=== PATIENT | female | born 1935 | race Caucasian/White ===

== ENCOUNTER 2018-07-05 06:18 | Day surgery (SDC) | payer MEDICARE ==
[2018-07-03 14:42] LABS: Absolute Lymphocytes (CBC) 2.4 K/uL (0.7-4.9); Absolute Monocytes 0.7 K/uL (0.1-1.3); Basophils % 1.4 % (0-1.3); Hematocrit 43.8 % (36.0-45.0); Lymphocytes % 30.6 % (15.3-44.8); MPV 8.6 fL (7.6-11.3); Monocytes % 8.9 % (3.3-12.3); RBC Red Blood Cell Count 4.69 M/uL (3.86-4.86)
[2018-07-03 14:44] LABS: Potassium 3.6 mmol/L (3.5-5.1)
[2018-07-03 15:15] LABS: Protime INR 0.87
[2018-07-03 15:15] LABS: Urine Appearance CLOUDY; Urine Bilirubin NEGATIVE (NEG); Urine Blood NEGATIVE (NEG); Urine Color YELLOW; Urine Glucose NEGATIVE (NEG); Urine Microscopic Reflex ORDER UMIC; Urine Protein 2+ (NEG); Urine Urobilinogen 0.2 mg/dL (0.2-1.0); Urine pH 5.5 (5.0-7.0)
[2018-07-03 15:24] LABS: Urine Bacteria <20 /HPF (<20); Urine Culture Reflex Order REFLEXED; Urine RBC <5 /HPF (NONE SEEN)
[2018-07-05] MEDS ORDERED: Ringers Lactate 1,000 ML IV ONE ×2 (07:04→09:14)
[2018-07-05] MEDS ORDERED: PROPOFOL 200 MG/20 ML VIAL IV ONE ×2 (07:10→07:25)
[2018-07-05] MEDS ORDERED: DEXAMETHASONE 10 MG/ML VIAL ONE (07:10)
[2018-07-05] MEDS ORDERED: FENTANYL CITR 100 MCG/2 ML ONE ×3 (07:10→10:57)
[2018-07-05] MEDS ORDERED: ROCURONIUM 50 MG/5 ML VIAL IV ONE (07:10)
[2018-07-05] MEDS ORDERED: LIDOCAINE 2% MPF 5 ML VIAL ONE (07:10)
[2018-07-05] MEDS ORDERED: MIDAZOLAM HCL 2 MG/2 ML INJ ONE (07:10)
[2018-07-05] MEDS ORDERED: NA CHLORIDE 0.9% 100 ML IV ONE (07:22)
[2018-07-05] MEDS ORDERED: VASOPRESSIN 20 UNIT/ML VIAL ONE (07:23)
[2018-07-05] MEDS ORDERED: CEFAZOLIN/SWI 1gm 1 GM/10 ML SYR ONE (07:23)
[2018-07-05] MEDS: Ringers Lactate 1,000 ML IV ONE ×2 (11:01→11:02)
[2018-07-05] MEDS ORDERED: ONDANSETRON 4 MG (ODT) TAB PO PRN (11:18)
[2018-07-05] MEDS ORDERED: ACETAMINOPHEN 500 MG TAB PO PRN (11:18)
[2018-07-05] MEDS ORDERED: MORPHINE 4 MG/ML SYR IV PRN (11:18)
[2018-07-05] MEDS: METFORMIN HCL 500 MG TAB PO SCH (17:00)
[2018-07-05] MEDS: Ringers Lactate 1,000 ML IV SCH (19:15)
[2018-07-06] MEDS: Ringers Lactate 1,000 ML IV SCH (03:25)
[2018-07-06 04:52] LABS: Absolute Lymphocytes (CBC) 1.7 K/uL (0.7-4.9); Absolute Monocytes 0.9 K/uL (0.1-1.3); Absolute Neutrophil 11.4 K/uL (1.8-8.0); Basophils % 0.2 % (0-1.3); Hematocrit 37.3 % (36.0-45.0); MPV 8.4 fL (7.6-11.3); Monocytes % 6.4 % (3.3-12.3)
[2018-07-06] MEDS ORDERED: LEVOTHYROXINE SOD 0.05 MG TABLET PO SCH (06:00)
[2018-07-06] MEDS: METFORMIN HCL 500 MG TAB PO SCH (08:16)
[2018-07-06] MEDS ORDERED: hydroCHLOROthiazide 12.5 MG CAP PO SCH (09:00)
[2018-07-06] MEDS ORDERED: PANTOPRAZOLE 40MG TABLET PO SCH (09:00)
[2018-07-06] MEDS ORDERED: AMLODIPINE 10 MG TAB PO SCH (09:00)
== END 2018-07-06 14:00 | disposition home or self-care (01) ==
LOC: OR 06:18 → 2ND-WC 11:52 → OR 07-06 14:00
PROVIDERS: ATTEND Obstetrics & Gynecology
PROC: 0TSD0ZZ Reposition Urethra, Open Approach (ICD-10-PCS; 2018-07-05)
PROC: 0HQ9XZZ Repair Perineum Skin, External Approach (ICD-10-PCS; 2018-07-05)
PROC: 0ULG7ZZ Occlusion of Vagina, Via Natural or Artificial Opening (ICD-10-PCS; principal; 2018-07-05 07:30)
DX: N99.3 Prolapse of vaginal vault after hysterectomy (principal); N81.12 Cystocele, lateral; N39.3 Stress incontinence (female) (male); N95.2 Postmenopausal atrophic vaginitis; E11.65 Type 2 diabetes mellitus with hyperglycemia; I10 Essential (primary) hypertension; E03.9 Hypothyroidism, unspecified; K21.9 Gastro-esophageal reflux disease without esophagitis; E78.5 Hyperlipidemia, unspecified; Z79.82 Long term (current) use of aspirin; Z88.2 Allergy status to sulfonamides; Z88.3 Allergy status to other anti-infective agents; Z88.8 Allergy status to other drugs, medicaments and biological substances; Z80.3 Family history of malignant neoplasm of breast; Z80.0 Family history of malignant neoplasm of digestive organs; Z82.49 Family history of ischemic heart disease and other diseases of the circulatory system
CPT/HCPCS: 57120; 57288; 12001; 87088; 85025 ×2; 87086; 80048; 36415 ×2; 86900; 86850; 85610; 86901; 82962 ×5; 85730; J2704 ×2; J3010 ×3; J1100; J0690; 81003; 81015; J2250

== ENCOUNTER 2021-10-31 10:46 | Emergency (ER) | payer OTHER ==
[2021-10-31] MEDS ORDERED: HYDROCODONE/APAP 5/325 MG TAB ONE (11:47)
--- NOTE | 2021-10-31 13:00 | RAD REPORT ---
EXAM DESCRIPTION: RAD - Foot Right 3 View - 10/31/2021 12:34 pm CLINICAL HISTORY: Right foot pain status post injury FINDINGS: Markedly displaced fracture base of fifth proximal phalanx with marked angulation present at the fracture site. No dislocation
--- NOTE | 2021-10-31 13:26 | EDPHYS ---
Physician Documentation [facility] Name: Madeline Dillard Age: 85 yrs Sex: Female : 1935 Arrival Date: 10/31/2021 Time: 10:52 Bed 12 Private MD: Lalito Yung T ED Physician Tana Connell HPI: 10/31 11:16 This 85 yrs old Female presents to ER via Wheelchair with complaints of Fall Injury, jmm Toe Injury. 11:16 The patient presents with an injury, pain. Onset: The symptoms/episode began/occurred jmm acutely, just prior to arrival. Modifying factors: The symptoms are alleviated by nothing, the symptoms are aggravated by nothing. Associated signs and symptoms: Pertinent positives:. This is an 85 year old female with a history of dm that presents to the ED with complaints of right 5th toe pain after stubbing her foot. Denies other injury. Denies head injury. . Historical: - Allergies: 11:01 ALL MAXWELL DRUGS; iw 11: bupivacaine; iw 11: Lidocaine; iw 11: Marcaine 0.5%; iw 11:01 Bactrim; iw 11:01 Celebrex; iw 11:01 Fosamax; iw 11:01 Sulfa (Sulfonamide Antibiotics); iw - Home Meds: 11: metformin 500 mg oral tab 2 times per day [Active]; mobic [Active]; Trelegy Ellipta iw inhalation once daily [Active]; citalopram 20 mg tab 1 tab once daily [Active]; amlodipine 10 mg tab 1 tab once daily [Active]; aspirin 81 mg Oral cap 1 cap once daily [Active]; Crestor 20 mg oral tab 1 tab once daily [Active]; hydrochlorothiazide 12.5 mg Oral tab 1 tab 2 times per day [Active]; levothyroxine 75 mcg cap 1 cap once daily [Active]; - PMHx: 11:01 Diabetes - NIDDM; ulcerative colitis; iw - PSHx: 11:01 hysterectomy; Cholecystectomy; bladder prolapse; cataract; back surgery for pinched iw nerves; - Immunization history:: Adult Immunizations unknown. - Social history:: Smoking status: unknown. ROS: 16:07 Constitutional: Negative for fever, chills, and weight loss, Cardiovascular: Negative jmm for chest pain, palpitations, and edema, Respiratory: Negative for shortness of breath, cough, wheezing, and pleuritic chest pain. 16:07 MS/extremity: Positive for pain. 16:07 All other systems are negative. Exam: 16:07 Constitutional: This is a well developed, well nourished patient who is awake, alert, jmm and in no acute distress. Head/Face: atraumatic. Eyes: EOMI, no conjunctival erythema appreciated ENT: Moist Mucus Membranes Neck: Trachea midline, Supple Chest/axilla: Normal chest wall appearance and motion. Cardiovascular: Regular rate and rhythm. No edema appreciated Respiratory: Normal respirations, no respiratory distress appreciated Abdomen/GI: Non distended Back: Normal ROM Skin: General appearance color normal 16:07 Musculoskeletal/extremity: pain noted to the right 5th toe. deformity, < 2 sec dist cap refill. 16:07 Skin: Appearance: Color: normal in color. 16:07 Neuro: Orientation: is normal, Mentation: is normal, Memory: is normal. 16:07 Psych: Behavior/mood is pleasant, cooperative. Vital Signs: 11:05 BP 122 / 54; Pulse 64; Resp 16; Pulse Ox 95% on R/A; Weight 68.04 kg; Height 4 ft. 11 iw in. (149.86 cm); Pain 3/10; 11:05 Body Mass Index 30.30 (68.04 kg, 149.86 cm) iw MDM: 11:16 Patient medically screened. [facility] 13:24 Data reviewed: vital signs, nurses notes. Counseling: I had a detailed discussion with [facility] the patient and/or guardian regarding: the historical points, exam findings, and any diagnostic results supporting the discharge/admit diagnosis, radiology results, the need for outpatient follow up, to return to the emergency department if symptoms worsen or persist or if there are any questions or concerns that arise at home. 10/31 11:18 Order name: Foot Right 3 View XRAY; Complete Time: 13:04 [facility] 10/31 11:18 Order name: Ice pack; Complete Time: 11:43 [facility] 10/31 13:05 Order name: Misc. Order: carla tape, orthoshoe; Complete Time: 13:23 [facility] Administered Medications: 11:43 Drug: HYDROcodone-acetaminophen 5 mg-325 mg 1 tabs Route: PO; iw 12:00 Follow up: Response: No adverse reaction iw Disposition: 16:15 STAFF ATTESTATION STATEMENT: I was immediately available onsite in the emergency sd2 department for consultation in the care of this patient. I did not see or examine this patient. Tana Connell MD. Disposition Summary: 10/31/21 13:25 Discharge Ordered Location: Home [facility] Condition: Stable [facility] Diagnosis - Right 5th toe Fracture [facility] Followup: [facility] - With: Jose Alford DPM - When: 2 - 3 days - Reason: Recheck today's complaints, Continuance of care, Re-evaluation by your physician Discharge Instructions: - Discharge Summary Sheet [facility] - Toe Fracture [facility] Forms: - Medication Reconciliation Form [facility] - Thank You Letter [facility] - Antibiotic Education [facility] - Prescription Opioid Use [facility] Prescriptions: - Tylenol-Codeine #3 300 mg-30 mg Oral - take 1 tablet by ORAL route every 4-6 hours As needed; 20 tablet; Refills: 0, [facility] Product Selection Permitted Signatures: Dispatcher [employer] EDMS William Ward PA PA jmm Williams, Irene, RN RN iw Tana Connell MD MD sd2 Corrections: (The following items were deleted from the chart) 16:08 11:16 This is an 85 year old female with a history of dm. gina fuentes
--- NOTE | 2021-10-31 13:26 | ER ---
Nurse's Notes [facility] Name: Madeline Dillard Age: 85 yrs Sex: Female : 1935 Arrival Date: 10/31/2021 Time: 10:52 Bed 12 Private MD: Lalito Yung T Diagnosis: Right 5th toe Fracture Presentation: 10/31 10:59 Chief complaint: Patient states: tripped and fell, my toe got caught on the door jamb , iw deformed pinky toe on right foot, can't put weight on foot. 10:59 Acuity: JUSTICE 4 iw 13:40 Coronavirus screen: At this time, the client does not indicate any symptoms associated iw with coronavirus-19. Ebola Screen: Patient negative for fever greater than or equal to 101.5 degrees Fahrenheit, and additional compatible Ebola Virus Disease symptoms Patient denies exposure to infectious person. Patient denies travel to an Ebola-affected area in the 21 days before illness onset. No symptoms or risks identified at this time. Initial Sepsis Screen: Does the patient meet any 2 criteria? No. Patient's initial sepsis screen is negative. Does the patient have a suspected source of infection? No. Patient's initial sepsis screen is negative. Risk Assessment: Do you want to hurt yourself or someone else? Patient reports no desire to harm self or others. Onset of symptoms was October 31, 2021. 13:40 Method Of Arrival: Wheelchair iw Triage Assessment: 13:40 General: Appears in no apparent distress. Behavior is calm, cooperative. iw Historical: - Allergies: 11:01 ALL MAXWELL DRUGS; iw 11: bupivacaine; iw 11: Lidocaine; iw 11: Marcaine 0.5%; iw 11:01 Bactrim; iw 11:01 Celebrex; iw 11:01 Fosamax; iw 11:01 Sulfa (Sulfonamide Antibiotics); iw - Home Meds: 11: metformin 500 mg oral tab 2 times per day [Active]; mobic [Active]; Trelegy Ellipta iw inhalation once daily [Active]; citalopram 20 mg tab 1 tab once daily [Active]; amlodipine 10 mg tab 1 tab once daily [Active]; aspirin 81 mg Oral cap 1 cap once daily [Active]; Crestor 20 mg oral tab 1 tab once daily [Active]; hydrochlorothiazide 12.5 mg Oral tab 1 tab 2 times per day [Active]; levothyroxine 75 mcg cap 1 cap once daily [Active]; - PMHx: 11:01 Diabetes - NIDDM; ulcerative colitis; iw - PSHx: 11:01 hysterectomy; Cholecystectomy; bladder prolapse; cataract; back surgery for pinched iw nerves; - Immunization history:: Adult Immunizations unknown. - Social history:: Smoking status: unknown. Screenin:35 Abuse screen: Denies threats or abuse. Denies injuries from another. Nutritional iw screening: No deficits noted. Tuberculosis screening: No symptoms or risk factors identified. Fall Risk None identified. Assessment: 11:20 General: Appears in no apparent distress. Behavior is calm, cooperative. Pain: iw Complains of pain in right fifth toe and Right fifth toenail. Neuro: Level of Consciousness is awake, alert, obeys commands, Oriented to person, place, time, situation, Moves all extremities. Cardiovascular: Patient's skin is warm and dry. Respiratory: Respiratory effort is even, unlabored, Respiratory pattern is regular, symmetrical. Derm: Skin is intact, is healthy with good turgor. Musculoskeletal: Bony deformity noted of right fifth toe. 12:35 Reassessment: Patient appears in no apparent distress at this time. Patient and/or iw family updated on plan of care and expected duration. Pain level reassessed. Patient is alert, oriented x 3, equal unlabored respirations, skin warm/dry/pink. Vital Signs: 11:05 BP 122 / 54; Pulse 64; Resp 16; Pulse Ox 95% on R/A; Weight 68.04 kg; Height 4 ft. 11 iw in. (149.86 cm); Pain 3/10; 11:05 Body Mass Index 30.30 (68.04 kg, 149.86 cm) iw ED Course: 10:52 Patient arrived in ED. as 10:53 Lalito Yung MD is Private Physician. as 10:57 William Ward PA is PHCP. jmm 10:57 Tana Connell MD is Attending Physician. jmm 11:01 Triage completed. iw 11:05 Arm band placed on. iw 11:26 Radha Schuster, RN is Primary Nurse. iw 12:35 Foot Right 3 View XRAY In Process Unspecified. EDMS 12:36 No provider procedures requiring assistance completed. iw 13:24 Jose Alford DPM is Referral Physician. jmm 13:40 Patient did not have IV access during this emergency room visit. iw 13:41 Patient has correct armband on for positive identification. iw Administered Medications: 11:43 Drug: HYDROcodone-acetaminophen 5 mg-325 mg 1 tabs Route: PO; iw 12:00 Follow up: Response: No adverse reaction iw Medication: 11:20 VIS not applicable for this client. iw Outcome: 13:25 Discharge ordered by MD. gina 13:40 Discharged to home via wheelchair, with family. iw 13:40 Condition: good 13:40 Discharge instructions given to patient, family, Instructed on discharge instructions, follow up and referral plans. medication usage, Demonstrated understanding of instructions, follow-up care, medications, Prescriptions given X 1. 13:41 Patient left the ED. iw Signatures: Dispatcher [employer] EDMS William Ward PA PA jmm Martinez, Amelia as Williams, Irene, RN RN iw
[2021-11-01 22:31] VITALS: BP 122/54; O2SAT 95
== END 2021-10-31 13:41 | disposition home or self-care (01) ==
LOC: ER 10:46
DX: S92.501A Displaced unspecified fracture of right lesser toe(s), initial encounter for closed fracture (principal)
CPT/HCPCS: 99283

== ENCOUNTER 2022-01-23 18:32 | Emergency (ER) | payer OTHER ==
[2022-01-23] MEDS ORDERED: NA CHLORIDE 0.9% 1,000 ML ONE (20:28)
[2022-01-23] MEDS ORDERED: FAMOTIDINE 20 MG/2 ML VIAL IV ONE (20:28)
[2022-01-23 21:14] LABS: Absolute Lymphocytes (CBC) 1.4 K/uL (0.7-4.9); Hematocrit 44.1 % (36.0-45.0); Lymphocytes % 10.7 % (15.3-44.8); MCV 90.4 fL (80-100); MPV 8.8 fL (7.6-11.3); RBC Red Blood Cell Count 4.88 M/uL (3.86-4.86)
[2022-01-23 21:29] LABS: Albumin 2.4 g/dL (3.4-5.0); Bilirubin Total 0.8 mg/dL (0.2-1.0); Potassium 3.1 mmol/L (3.5-5.1); Protein, Total 6.9 g/dL (6.4-8.2)
--- NOTE | 2022-01-23 22:01 | RAD REPORT ---
EXAM DESCRIPTION: CTAbdomen Pelvis W Contrast - 01/23/2022 9:49 pm CLINICAL HISTORY: LLQ abdominal pain COMPARISON: <Comparisons> TECHNIQUE: CT of the abdomen and pelvis was performed. All CT scans are performed using dose optimization technique as appropriate and may include automated exposure control or mA/KV adjustment according to patient size. FINDINGS: Lower chest: Aortic valve calcifications. Coronary artery calcifications. Liver: Minimal intra biliary duct dilatation . No suspicious liver lesions. Biliary: Cholecystectomy. Extrahepatic biliary ductal dilatation likely related to the postcholecyste ctomy state. Stomach: No significant focal abnormality. Duodenum: No significant focal abnormality. Pancreas: No significant abnormality. Spleen: No significant abnormality. Adrenal: No suspicious lesions. Kidney/ureter: Mild left-sided hydronephrosis secondary to a 5 mm stone in the left proximal ureter. Multiple bilateral renal calculi, the largest in the left lower pole measuring 14 mm Retroperitoneum: No retroperitoneal adenopathy. Vascular: No aneurysm. Atherosclerosis . Bowel: Diverticulosis without diverticulitis.. Nonvisualized appendix. Peritoneum: No ascites or free air. Bladder: Grossly unremarkable. Reproductive: No adnexal masses. . Bones: No acute fracture. Other: n/a IMPRESSION: Mild left-sided hydronephrosis secondary to a 5 mm stone in the left proximal ureter.
[2022-01-23 22:14] LABS: Urine Blood 2+ (Negative); Urine Glucose Negative (Negative); Urine Protein 2+ (Negative)
[2022-01-23] MEDS ORDERED: TAMSULOSIN 0.4 MG SR CAP ONE (22:33)
--- NOTE | 2022-01-23 23:02 | EDPHYS ---
Physician Documentation [facility] Name: Madeline Dillard Age: 86 yrs Sex: Female : 1935 Arrival Date: 01/23/2022 Time: 18:33 Bed 16 Private MD: ED Physician Edmund Light HPI: 01/23 20:15 This 86 yrs old Female presents to ER via Ambulatory with complaints of kdr Nausea/Vomiting, Flank Pain, Fever, Weakness. 20:16 With a patient has had nausea and vomiting for 5 days. Yesterday she began to get left kdr lower quadrant pain. She denies any bloody stool or blood in her. She does not appear acutely ill at this point is generally weak. He has no other focal complaint.. Severity of symptoms: At their worst the symptoms were mild moderate just prior to arrival. The patient has not experienced similar symptoms in the past. The patient has not recently seen a physician. Historical: - Allergies: 19:59 ALL MAXWELL DRUGS; eh3 19:59 Bactrim; eh3 19:59 bupivacaine; eh3 19:59 Celebrex; eh3 19:59 Fosamax; eh3 19:59 Lidocaine; eh3 19:59 Marcaine 0.5%; eh3 19:59 Sulfa (Sulfonamide Antibiotics); eh3 - Home Meds: 19:59 amlodipine 10 mg tab 1 tab once daily [Active]; aspirin 81 mg Oral cap 1 cap once daily eh3 [Active]; citalopram 20 mg tab 1 tab once daily [Active]; Crestor 20 mg Oral tab 1 tab once daily [Active]; hydrochlorothiazide 12.5 mg Oral tab 1 tab 2 times per day [Active]; levothyroxine 75 mcg cap 1 cap once daily [Active]; metformin 500 mg Oral tab 2 times per day [Active]; Mobic [Active]; Trelegy Ellipta inhalation once daily [Active]; - PMHx: 19:59 Diabetes - NIDDM; ulcerative colitis; eh3 - PSHx: 19:59 back surgery for pinched nerves; bladder prolapse; cataract; Cholecystectomy; eh3 hysterectomy; - Immunization history:: Adult Immunizations up to date. - Social history:: Smoking status: Patient denies any tobacco usage or history of. Patient/guardian denies using alcohol. ROS: 20:16 Constitutional: Negative for fever, chills, and weight loss, Eyes: Negative for injury, kdr pain, redness, and discharge, ENT: Negative for injury, pain, and discharge, Neck: Negative for injury, pain, and swelling, Cardiovascular: Negative for chest pain, palpitations, and edema, Respiratory: Negative for shortness of breath, cough, wheezing, and pleuritic chest pain, Back: Negative for injury and pain, : Negative for injury, bleeding, discharge, and swelling, MS/Extremity: Negative for injury and deformity, Skin: Negative for injury, rash, and discoloration, Neuro: Negative for headache, weakness, numbness, tingling, and seizure activity. Psych: Negative for depression, anxiety, suicide ideation, homicidal ideation, and hallucinations, Allergy/Immunology: Negative for hives, rash, and allergies, Endocrine: Negative for neck swelling, polydipsia, polyuria, polyphagia, and marked weight changes, Hematologic/Lymphatic: Negative for swollen nodes, abnormal bleeding, and unusual bruising. 20:16 Abdomen/GI: Positive for abdominal pain, nausea and vomiting, nausea, vomiting, and diarrhea, Negative for abdominal distension, dysphagia, hematemesis, black/tarry stool, rectal pain. Exam: 20:16 Constitutional: This is a well developed, well nourished patient who is awake, alert, kdr and in no acute distress. Head/Face: Normocephalic, atraumatic. Eyes: Pupils equal round and reactive to light, extra-ocular motions intact. Lids and lashes normal. Conjunctiva and sclera are non-icteric and not injected. Cornea within normal limits. Periorbital areas with no swelling, redness, or edema. Neck: Trachea midline, no thyromegaly or masses palpated, and no cervical lymphadenopathy. Supple, full range of motion without nuchal rigidity, or vertebral point tenderness. No Meningismus. Chest/axilla: Normal chest wall appearance and motion. Nontender with no deformity. No lesions are appreciated. Cardiovascular: Regular rate and rhythm with a normal S1 and S2. No gallops, murmurs, or rubs. Normal PMI, no JVD. No pulse deficits. Respiratory: Lungs have equal breath sounds bilaterally, clear to auscultation and percussion. No rales, rhonchi or wheezes noted. No increased work of breathing, no retractions or nasal flaring. Back: No spinal tenderness. No costovertebral tenderness. Full range of motion. Skin: Warm, dry with normal turgor. Normal color with no rashes, no lesions, and no evidence of cellulitis. MS/ Extremity: Pulses equal, no cyanosis. Neurovascular intact. Full, normal range of motion. Neuro: Awake and alert, GCS 15, oriented to person, place, time, and situation. Cranial nerves II-XII grossly intact. Motor strength 5/5 in all extremities. Sensory grossly intact. Cerebellar exam normal. Normal gait. Psych: Awake, alert, with orientation to person, place and time. Behavior, mood, and affect are within normal limits. 20:16 Abdomen/GI: Inspection: obese Bowel sounds: diminished, in all quadrants, Palpation: soft, mild abdominal tenderness, in the anterior aspect of left lateral abdomen and left lower quadrant. Vital Signs: 19:30 BP 132 / 95; Pulse 123; Resp 20; Pulse Ox 93% on R/A; Weight 68.04 kg; Height 4 ft. 11 eh3 in. (149.86 cm); Pain 6/10; 20:30 BP 120 / 71; Pulse 117; Resp 15; Pulse Ox 95% on 3 lpm NC; eh3 21:30 BP 134 / 102; Pulse 128; Resp 20; Pulse Ox 96% on 3 lpm NC; eh3 22:30 BP 111 / 94; Pulse 119; Resp 20; Pulse Ox 99% on 3 lpm NC; eh3 19:30 Body Mass Index 30.30 (68.04 kg, 149.86 cm) 3 MDM: 20:16 Data reviewed: vital signs, nurses notes, lab test result(s), radiologic studies. kdr Counseling: I had a detailed discussion with the patient and/or guardian regarding: the historical points, exam findings, and any diagnostic results supporting the discharge/admit diagnosis, lab results, radiology results, the need for outpatient follow up. 23:02 Patient medically screened. kdr 01/23 19:44 Order name: CBC with Diff; Complete Time: 21:39 kdr 01/23 19:44 Order name: CMP; Complete Time: 21:39 kdr 01/23 19:44 Order name: Lipase; Complete Time: 21:39 kdr 01/23 20:13 Order name: CT Abd/Pelvis - IV Contrast Only; Complete Time: 22:02 [facility] 01/23 22:14 Order name: Urine Dipstick-Ancillary; Complete Time: 22:35 EDMT 01/23 19:44 Order name: IV Saline Lock; Complete Time: 21:00 [facility] 01/23 19:44 Order name: Labs collected and sent; Complete Time: 21:00 [facility] 01/23 21:40 Order name: Urine Dipstick-Ancillary (obtain specimen); Complete Time: 22:37 kdr Administered Medications: 20:45 Drug: NS 0.9% 1000 ml Route: IV; Rate: 1 bolus; Site: right antecubital; eh3 21:45 Follow up: IV Status: Completed infusion; IV Intake: 1000ml 3 20:45 Drug: Pepcid (famotidine) 20 mg Route: IVP; Site: right antecubital; eh3 21:41 Follow up: Response: No adverse reaction 3 22:37 Drug: Flomax (tamsulosin) 0.4 mg Route: PO; eh3 23:13 Follow up: Response: No adverse reaction eh3 Disposition Summary: 01/23/22 23:02 Discharge Ordered Location: Home kdr Problem: new kdr Symptoms: have improved kdr Condition: Stable kdr Diagnosis - Lower abdominal pain, unspecified kdr - Kidney Stone/ Calculus in urethra kdr Followup: kdr - With: Private Physician - When: 2 - 3 days - Reason: If symptoms return, Further diagnostic work-up, Recheck today's complaints, Continuance of care, Re-evaluation by your physician Discharge Instructions: - Kidney Stones, [id number] kdr - Abdominal Pain, Adult, [id number] kdr - Discharge Summary Sheet cp Forms: - Medication Reconciliation Form kdr - Thank You Letter kdr - Antibiotic Education kdr Prescriptions: - Ibuprofen 600 mg Oral Tablet - take 1 tablet by ORAL route every 6 hours As needed take with food; 15 tablet; kdr Refills: 0, Product Selection Permitted - Zofran 4 mg Oral Tablet - take 1 tablet by ORAL route every 4-6 hours As needed; 12 tablet; Refills: 0, kdr Product Selection Permitted - Amoxicillin 500 mg Oral Capsule - take 1 capsule by ORAL route every 8 hours for 10 days; 9 tablet; Refills: 0, kdr Product Selection Permitted - Flomax 0.4 mg Oral capsule - take 1 capsule by ORAL route once daily 1/2 hour following the same meal each day; 10 capsule; Refills: 0, Product Selection Permitted Signatures: Dispatcher [employer] Edmund Ruiz MD MD kdr Hall, Erin RN RN eh3
--- NOTE | 2022-01-23 23:02 | ER ---
Nurse's Notes [facility] Name: Madeline Dillard Age: 86 yrs Sex: Female : 1935 Arrival Date: 01/23/2022 Time: 18:33 Bed 16 Private MD: Diagnosis: Lower abdominal pain, unspecified;Kidney Stone/ Calculus in urethra Presentation: 01/23 19:30 Chief complaint: Patient states: LLQ pain radiating to midback area, n/v for 5 days. eh3 Also reports hallucinations yesterday and today. Coronavirus screen: Vaccine status: Patient reports being unvaccinated. Ebola Screen: No symptoms or risks identified at this time. Initial Sepsis Screen: Does the patient meet any 2 criteria? Altered Mental Status. HR > 90 bpm. Does the patient have a suspected source of infection? No. Patient's initial sepsis screen is negative. Risk Assessment: Do you want to hurt yourself or someone else? Patient reports no desire to harm self or others. Onset of symptoms was January 18, 2022. 19:30 Method Of Arrival: Ambulatory 3 19:30 Acuity: JUSTICE 3 eh3 Triage Assessment: 19:30 General: Appears in no apparent distress. uncomfortable, Behavior is calm, cooperative, eh3 appropriate for age. Pain: Complains of pain in posterior aspect of left lateral abdomen, anterior aspect of left lateral abdomen and left lower quadrant Pain radiates to lumbar area, left low back and right low back. EENT: No signs and/or symptoms were reported regarding the EENT system. Neuro: Level of Consciousness is awake, alert, obeys commands, Oriented to person, place, time, situation. Cardiovascular: Capillary refill < 3 seconds Patient's skin is warm and dry. Respiratory: Airway is patent Respiratory effort is even, unlabored, Respiratory pattern is regular, symmetrical. GI: Abdomen is round non-distended, Reports lower abdominal pain, intolerance of food, nausea, vomiting. : No signs and/or symptoms were reported regarding the genitourinary system. Derm: No signs and/or symptoms reported regarding the dermatologic system. Musculoskeletal: Circulation, motion, and sensation intact. Range of motion: intact in all extremities. Historical: - Allergies: 19:59 ALL MAXWELL DRUGS; eh3 19:59 Bactrim; eh3 19:59 bupivacaine; eh3 19:59 Celebrex; 3 19:59 Fosamax; eh3 19:59 Lidocaine; 3 19:59 Marcaine 0.5%; eh3 19:59 Sulfa (Sulfonamide Antibiotics); eh3 - Home Meds: 19:59 amlodipine 10 mg tab 1 tab once daily [Active]; aspirin 81 mg Oral cap 1 cap once daily eh3 [Active]; citalopram 20 mg tab 1 tab once daily [Active]; Crestor 20 mg Oral tab 1 tab once daily [Active]; hydrochlorothiazide 12.5 mg Oral tab 1 tab 2 times per day [Active]; levothyroxine 75 mcg cap 1 cap once daily [Active]; metformin 500 mg Oral tab 2 times per day [Active]; Mobic [Active]; Trelegy Ellipta inhalation once daily [Active]; - PMHx: 19:59 Diabetes - NIDDM; ulcerative colitis; eh3 - PSHx: 19:59 back surgery for pinched nerves; bladder prolapse; cataract; Cholecystectomy; eh3 hysterectomy; - Immunization history:: Adult Immunizations up to date. - Social history:: Smoking status: Patient denies any tobacco usage or history of. Patient/guardian denies using alcohol. Screenin:30 Abuse screen: Denies threats or abuse. Denies injuries from another. Nutritional 3 screening: No deficits noted. Tuberculosis screening: No symptoms or risk factors identified. Fall Risk None identified. Assessment: 19:30 Reassessment: No changes from previously documented assessment. See triage assessment. eh3 GI: Abdomen is round non-distended. 20:30 Reassessment: Patient appears in no apparent distress at this time. Patient and/or eh3 family updated on plan of care and expected duration. Pain level reassessed. Patient is alert, oriented x 3, equal unlabored respirations, skin warm/dry/pink. 21:30 Reassessment: Patient appears in no apparent distress at this time. Patient and/or eh3 family updated on plan of care and expected duration. Pain level reassessed. Patient is alert, oriented x 3, equal unlabored respirations, skin warm/dry/pink. 22:30 Reassessment: Patient appears in no apparent distress at this time. Patient and/or eh3 family updated on plan of care and expected duration. Pain level reassessed. Patient is alert, oriented x 3, equal unlabored respirations, skin warm/dry/pink. Vital Signs: 19:30 BP 132 / 95; Pulse 123; Resp 20; Pulse Ox 93% on R/A; Weight 68.04 kg; Height 4 ft. 11 eh3 in. (149.86 cm); Pain 6/10; 20:30 BP 120 / 71; Pulse 117; Resp 15; Pulse Ox 95% on 3 lpm NC; eh3 21:30 BP 134 / 102; Pulse 128; Resp 20; Pulse Ox 96% on 3 lpm NC; eh3 22:30 BP 111 / 94; Pulse 119; Resp 20; Pulse Ox 99% on 3 lpm NC; eh3 19:30 Body Mass Index 30.30 (68.04 kg, 149.86 cm) eh3 ED Course: 18:33 Patient arrived in ED. as 19:01 Edmund Light MD is Attending Physician. kdr 19:30 Patient has correct armband on for positive identification. Bed in low position. Call [facility] light in reach. Side rails up X2. Adult w/ patient. Client placed on continuous cardiac and pulse oximetry monitoring. NIBP monitoring applied. Door closed. Noise minimized. Warm blanket given. Pillow given. 19:30 Arm band placed on right wrist. eh3 19:41 Katelyn Moreno, RN is Primary Nurse. eh3 19:59 Triage completed. eh3 20:45 Inserted saline lock: 22 gauge in right antecubital area, using aseptic technique. eh3 Blood collected. 21:50 CT Abd/Pelvis - IV Contrast Only In Process Unspecified. EDMS 23:12 No provider procedures requiring assistance completed. IV discontinued, intact, eh3 bleeding controlled, No redness/swelling at site. Pressure dressing applied. Administered Medications: 20:45 Drug: NS 0.9% 1000 ml Route: IV; Rate: 1 bolus; Site: right antecubital; eh3 21:45 Follow up: IV Status: Completed infusion; IV Intake: 1000ml eh3 20:45 Drug: Pepcid (famotidine) 20 mg Route: IVP; Site: right antecubital; eh3 21:41 Follow up: Response: No adverse reaction eh3 22:37 Drug: Flomax (tamsulosin) 0.4 mg Route: PO; eh3 23:13 Follow up: Response: No adverse reaction eh3 Medication: 23:12 VIS not applicable for this client. eh3 Intake: 21:45 IV: 1000ml; Total: 1000ml. eh3 Outcome: 23:02 Discharge ordered by . kdr 23:27 Discharged to home via wheelchair, with family. eh3 23:27 Condition: stable 23:27 Discharge instructions given to patient, family, Instructed on discharge instructions, follow up and referral plans. medication usage, Demonstrated understanding of instructions, follow-up care, medications, Prescriptions given X 4. 23:28 Patient left the ED. eh3 Signatures: Dispatcher [employer] EDMS Edmund Light MD MD kdr Martinez, Amelia as Hall, Erin, RN RN eh3 Corrections: (The following items were deleted from the chart) 20:02 19:30 Chief complaint: Patient states: LLQ pain radiating to midback area, n/v for 5 eh3 days eh3
[2022-01-24 02:36] VITALS: BP 111/94; O2SAT 99
== END 2022-01-23 23:28 | disposition home or self-care (01) ==
LOC: ER 18:32
DX: N20.0 Calculus of kidney (principal); N21.1 Calculus in urethra; E11.9 Type 2 diabetes mellitus without complications
CPT/HCPCS: 96361; 85025; 36415; 81003; 83690; 80053; 74177; 96374; 99284; Q9967; J7030

== ENCOUNTER 2022-03-09 10:23 | Day surgery (SDC) | payer OTHER ==
[2022-03-03 16:21] LABS: Absolute Lymphocytes (CBC) 2.5 K/uL (0.7-4.9); Hematocrit 37.5 % (36.0-45.0); Lymphocytes % 27.6 % (15.3-44.8); MCV 89.6 fL (80-100); RBC Red Blood Cell Count 4.19 M/uL (3.86-4.86)
[2022-03-03 16:26] LABS: Protime INR 0.98
--- NOTE | 2022-03-03 16:32 | RAD REPORT ---
EXAM DESCRIPTION: Branden Steinberg (2 Views)03/03/2022 4:09 pm CLINICAL HISTORY: Preop for genitourinary surgery COMPARISON: 2019 FINDINGS: The lungs appear clear of acute infiltrate. The heart is borderline enlarged IMPRESSION: No acute abnormalities displayed
--- NOTE | 2022-03-04 15:32 | EKG ---
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
[2022-03-09] MEDS ORDERED: NA CHLORIDE 0.9% 1,000 ML ONE (10:43)
[2022-03-09] MEDS ORDERED: MIDAZOLAM HCL 2 MG/2 ML INJ ONE (12:12)
[2022-03-09] MEDS ORDERED: LIDOCAINE 1% MPF 5 ML VIAL ONE (12:12)
[2022-03-09] MEDS ORDERED: FENTANYL CITR 100 MCG/2 ML ONE (12:12)
[2022-03-09] MEDS ORDERED: propofoL 200 MG/20 ML VIAL IV ONE (12:12)
[2022-03-09] MEDS ORDERED: ONDANSETRON 4 MG/2 ML VIAL ONE (12:13)
[2022-03-09] MEDS ORDERED: CEFAZOLIN SODIUM 1 GM/VIAL ONE (12:37)
[2022-03-09] MEDS ORDERED: CEFTRIAXONE 1000 MG/VIAL ONE (13:25)
[2022-03-09] MEDS ORDERED: CODEINE 30MG/APAP 300MG TAB PO PRN (14:04)
--- NOTE | 2022-03-09 14:19 | RAD REPORT ---
EXAM DESCRIPTION: RAD - Urethrocystogrphy Retrograde - 03/09/2022 1:29 pm CLINICAL HISTORY: ICD N 20.0 FINDINGS: 24 fluoroscopic spot images obtained. Fluoroscopy time 0.5 minutes Left ureter was cannulated and contrast administered. Subsequently an ureteral stent was placed. Exam ination was performed by Dr Reed
--- NOTE | 2022-03-09 16:18 | OP ---
Surgeon: MELANIE AZEVEDO Preoperative Diagnosis: Left nephroureterolithiasis. Postoperative Diagnoses: 1.Left nephroureterolithiasis. 2.Left hydronephrosis. 3.Left pyonephrosis. Principal Procedures: 1.Cystoscopy. 2.Left retrograde pyelography. 3.Left renal aspiration/washing. 4.Left ureteral stent placement. Indication For Procedure: Ms. Dillard is an 86-year-old woman, who presented to the Urology Clinic with obstructive ureterolithiasis present for over a month at that point. Because of concern for develop ment of acute on chronic kidney injury, she was recommended for prompt surgical intervention. Becaus e the stones were of significant volume with a 14 mm calculus in the kidney and a 5 mm calculus in th e ureter, I recommended initial placement of a ureteral stent followed by subsequent definitive manag ement via either ureteroscopy with laser lithotripsy or ESWL. Procedure In Detail: The patient was consented in the preoperative holding area before being transfe rred to operative suite where general anesthesia was induced. She was given Ancef 1 g IV antimicrobi al prophylaxis and pneumo boots were provided for DVT prophylaxis. Of note, she was previously treat ed with Keflex because of coagulase-negative Staphylococcus found in her urine. She denied any assoc iated fever or chills at home. She was placed in the lithotomy position, padded and secured to the t able appropriately, and her genitalia was prepped with Hibiclens and draped in standard fashion. The case was begun using a 22-Egyptian rigid cystoscope to traverse the urethra and into the bladder with ease. The bladder was decompressed of fluid and urine, and was surveyed in its entirety for the jaylyn llary mucosal lesion, foreign body, or stone. None were noted; and the ureteral orifices were orthot opic in location. As a result, I cannulated the left ureteral orifice using the tip of a 5-Egyptian ur eteral access catheter and spot fluoroscopic imaging was obtained. A radiopaque calculus was noted i n the region of the proximal ureter on the left side consistent with a 14 mm calculus previously seen on CT. The 5 mm distal ureteral calculus was not eminently visible fluoroscopically. As a result, I before injecting any contrast observed the presence of purulent drainage around the 5-Egyptian ureter al access catheter and out of the 5-Egyptian ureteral access catheter. This collection of pus was daljit ected as left ureteral drainage for culture. I then under live fluoroscopic imaging injected contras t up the ureter and the contrast did surpassed the 14-Egyptian calculus present at the level of the pro ximal ureter/UPJ before entering the lower pole calyces of the kidney. The calculus did end up displ aced into the renal pelvis, but because of the purulence draining from the 5-Egyptian catheter, I advan rashid the catheter into the proximal ureter where it met a point of obstruction and would not pass. Th is was likely location of the 5 mm calculus that was not radiopaque. As a result, I collected more d rainage from the left kidney, and then passed a Sensor wire with minimal difficulty around the stone and eventually putatively into the collecting system. I was then able to navigate the 5-Egyptian urete ral access catheter beyond that point of obstruction with minimal difficulty and eventually into the upper pole of the kidney. There, I drained several additional cc of purulent fluid out of the left k idney and aspirated to clear any and all purulence and contrast from within the renal pelvis and norah lacho. Once significantly decompressed, I then gently irrigated the collecting system with 10-15 cc of normal saline aspirating to remove as much debris as possible. Once most of the purulence had been removed, I then passed a second Sensor wire into the collecting system using a dual-lumen catheter ov er the indwelling safety wire and passed the 5-Egyptian ureteral access catheter all the way into the c alyces of her kidney in order to properly irrigated and clear it of any purulence. Once this was don e, I then removed the 5-Egyptian ureteral access catheter and back-loaded the cystoscope over the indwe lling safety wire. I then passed a 6-Egyptian by 24 cm double-J ureteral stent into her left kidney wi th ease with a coil observed fluoroscopically and 1 cystoscopically formed in her bladder. I then de compressed her bladder fluid and urine, and she was taken out of the lithotomy position. She was the n awakened from general anesthesia, transferred to a stretcher, and then transferred to the recovery room in good condition. Complications: None. She was given an additional dose of ceftriaxone 1 g IV antimicrobial therapy for the purulent urine n oted in her kidney despite prior treatment with Keflex. I will discharge her home with an additional 7 days of ciprofloxacin 500 mg p.o. b.i.d. while we await the results of the most recent urine cultu re. The Cipro was chosen because of the coagulase-negative Staph seen on the preoperative urine cult ure. She should subsequently follow up with me in the Urology Clinic in about 3 weeks' time to discu ss next steps and definitive management, which will likely include ureteroscopy with laser lithotrips y since the ureteral calculi are not visible despite the 14-Egyptian renal calculi being eminently visi ble fluoroscopically and potentially amenable to ESWL. WR/MODL Voice ID: [id number] Report ID: [id number]
[2022-03-09 16:19] VITALS: BP 137/47; O2SAT 99
== END 2022-03-09 16:11 | disposition home or self-care (01) ==
LOC: OR 10:23
PROVIDERS: ATTEND Urology
PROC: 0T778DZ Dilation of Left Ureter with Intraluminal Device, Via Natural or Artificial Opening Endoscopic (ICD-10-PCS; principal; 2022-03-09 11:45)
DX: N20.2 Calculus of kidney with calculus of ureter (principal); N17.9 Acute kidney failure, unspecified; N30.90 Cystitis, unspecified without hematuria; R10.32 Left lower quadrant pain; N13.6 Pyonephrosis
CPT/HCPCS: 52332; 93005; 87088 ×2; 85025; 87086 ×2; 80048; 36415; 85610; 82947; 85730; 71046; 74450; 51610; J2704; J2001; J3010; J7030; J2405; J0690; J2250

== ENCOUNTER 2022-04-29 06:30 | Day surgery (SDC) | payer OTHER ==
[2022-04-14 15:26] LABS: Absolute Lymphocytes (CBC) 3.4 K/uL (0.7-4.9); Hematocrit 40.2 % (36.0-45.0); Lymphocytes % 38.1 % (15.3-44.8); MPV 8.3 fL (7.6-11.3); RBC Red Blood Cell Count 4.47 M/uL (3.86-4.86)
[2022-04-14 15:28] LABS: Protime INR 0.92
[2022-04-14 15:35] LABS: Potassium 3.8 mmol/L (3.5-5.1)
[2022-04-29] MEDS ORDERED: NA CHLORIDE 0.9% 1,000 ML ONE (06:52)
[2022-04-29] MEDS ORDERED: LIDOCAINE 1% MPF 5 ML VIAL ONE (07:08)
[2022-04-29] MEDS ORDERED: FENTANYL CITR 100 MCG/2 ML ONE (07:08)
[2022-04-29] MEDS ORDERED: propofoL 200 MG/20 ML VIAL IV ONE (07:08)
[2022-04-29] MEDS ORDERED: ONDANSETRON 4 MG/2 ML VIAL ONE (07:08)
[2022-04-29] MEDS ORDERED: AMPICILLIN SODIUM 2 GM/VIAL VIAL ONE (07:11)
[2022-04-29] MEDS ORDERED: GENTAMICIN 80 MG/100 ML BAG 160 MG/200 ML BAG IV ONE (07:11)
[2022-04-29] MEDS ORDERED: dexAMETHasone 10 MG/ML VIAL ONE (07:12)
[2022-04-29] MEDS ORDERED: ROCURONIUM 50 MG/5 ML VIAL IV ONE (07:38)
[2022-04-29] MEDS ORDERED: EPHEDRINE SULF 50 MG/ML VIAL ONE (07:53)
[2022-04-29] MEDS ORDERED: SUGAMMADEX SODIUM 200 MG/2 ML VIAL IV ONE (08:33)
--- NOTE | 2022-04-29 09:03 | RAD REPORT ---
EXAM DESCRIPTION: RAD - Urethrocystogrphy Retrograde - 04/29/2022 8:52 am CLINICAL HISTORY: ICD N 20.0 FINDINGS: Fifteen fluoroscopic spot images obtained. Fluoroscopy time 0.3 minutes Left ureter was cannulated and contrast administered. Subsequently an ureteral stent was exchanged. E xamination was performed by Dr Reed
[2022-04-29] MEDS ORDERED: HYDROCODONE/APAP 5/325 MG TAB PO PRN (09:12)
[2022-04-29] MEDS ORDERED: PHENAZOPYRIDINE 100MG TAB PO ONE (09:12)
[2022-04-29 11:40] VITALS: BP 100/50; TEMP 96.7; O2SAT 95
--- NOTE | 2022-04-29 12:13 | OP ---
Surgeon: MELANIE AZEVEDO Preoperative Diagnoses: 1.Left nephroureterolithiasis. 2.Status post left ureteral stent placement for acute kidney injury. Postoperative Diagnoses: 1.Left nephroureterolithiasis. 2.Status post left ureteral stent placement for acute kidney injury. Principal Procedures: 1.Left ureteroscopy with pyeloscopy and laser lithotripsy, extensive. 2.Cystoscopy with left retrograde pyelography. 3.Left ureteral stent exchange. 4.Left ureteral stone basketing. Indication For Procedure: Ms. Dillard presented to the Urology Clinic with an obstructing left proximal ureteral calculus associated with large volume nephrolithiasis. She had signs of acute kidney injur y and thus underwent stent placement several weeks ago. She presents today for definitive management of her stones. Procedure In Detail: The patient was consented in the preoperative holding area before being transfe rred to operative suite where general anesthesia was induced. She was given ampicillin 2 g and genta micin 160 mg IV antimicrobial prophylaxis and pneumo boots were provided for DVT prophylaxis. She wa s placed in the lithotomy position, padded and secured to the table appropriately and her genitalia w as prepped with Hibiclens before being draped in standard fashion. The case was begun using a 22-Marcus mth rigid cystoscope to traverse the urethra and into the bladder with ease. The bladder was decompr essed of fluid and urine and the stent was observed to emanate from the left ureteral orifice. I beverley veyed her bladder in its entirety given her family history of bladder cancer in her father, and there were no papillary mucosal lesions. There was a stone fragment within the bladder and of course the left ureteral stent in place. As a result, I grasped the left ureteral stent using an alligator gras per and delivered the tip via the meatus. The proximal coil of the stent remained within the proxima l ureter, and I passed a Sensor wire via the ureteral stent and coiled it successfully in the putativ e collecting system of the kidney. Over the Sensor wire, I passed a dual-lumen catheter into the dis jez ureter and performed a retrograde pyelogram. Left retrograde pyelography: Using a 70:30 mixture of Omnipaque and saline, contrast was injected via the second lumen of the dual -lumen catheter and did propagate up a modestly dilated distal into the mid and proximal ureter befor e entering a mildly dilated renal pelvis. The stones were radiopaque within the kidney, but the ston e in the ureter was not significantly radiopaque. As a result, I passed a Bentson guidewire via the second lumen of the dual-lumen catheter and coiled alongside the Sensor wire aiming the upper pole of the kidney evidenced fluoroscopically. Over the Bentson guidewire, I removed the dual-lumen cathete r and passed an 11 x 13-Austrian ureteral access sheath. I was able to navigate this pretty easily all the way up the ureter and into the renal pelvis. I then passed via the ureteral access sheath over the Bentson wire a flexible ureteroscope into the upper pole of the kidney. I then surveyed the norah lacho and I identified a 5 mm calculus in the upper mid pole calyx, which was very hard in nature and I initially attempted to fragment it with a power setting of 0.8 joules and 10 hertz, but had to incre ase that power to 1.2 joules and 15 hertz in order to successfully fragment the stone. I then survey ed through the remaining calyces until I encountered the bulk of 14 mm stone burden in the lower pole calyx along with an additional 5 mm calculus there. There, I fragmented the stone by increasing the rate to 25 hertz to fragment the very large stone relatively quickly into fragments smaller than 1 m m in maximal dimension. I continued fragmentation until most of the fragments were about the size of the laser fiber or perhaps twice the size of the laser fiber at maximum. The laser fiber was 272 nm , so the maximum size of the stone fragments was about 0.5 mm. As a result, once the stone was signi ficantly fragmented, I then surveyed into the renal pelvis and the remaining calyces to ensure no add itional large fragments were noted and once that was cleared, I surveyed down the proximal into the m id ureter removing the ureteral access sheath along the way. In the distal ureter just at the level of the UVJ, I then encountered the 5 mm previously present ureteral calculus and at this point, I uti lized a 1.9-Austrian 0 tip Nitinol basket to grasp that stone and deliver it out of her system intact w ith ease. I then removed the ureteroscope and discontinued ureteroscopy and laser lithotripsy. I th en back-loaded the cystoscope over the indwelling safety wire and passed a 6-Austrian by 24 cm double-J ureteral stent successfully into the upper pole of the kidney with a coil observed fluoroscopically there. An additional coil was formed cystoscopically within her bladder. Of note, prior to placemen t of the ureteral stent, I again passed the dual-lumen catheter into the distal ureter and injected c ontrast via the second lumen performing a retrograde pyelogram to confirm integrity of the ureter and the collecting system. There was no extravasation, so the stent was subsequently placed. I then de compressed her bladder off fluid and urine, and the patient was taken out of the lithotomy position. She was then awakened from general anesthesia, transferred to a stretcher, and then transferred to [facility] recovery room in good condition. Complications: None. Discharge Disposition: She may follow up in about 2-3 weeks' time in the Urology Clinic for cystosco py and left ureteral stent extraction. She will be discharged with a prescription for Cipro for 3 da ys given the extensive stone fragmentation that took place on today's surgical management. She subse quently would likely benefit from a metabolic stone forming profile assessment given the large volume nephroureterolithiasis present today. This should prevent future stone forming events. VIANNEY/ELINAL Voice ID: [id number] Report ID: [id number]
== END 2022-04-29 11:25 | disposition home or self-care (01) ==
LOC: OR 06:30
PROVIDERS: ATTEND Urology
PROC: 0T778DZ Dilation of Left Ureter with Intraluminal Device, Via Natural or Artificial Opening Endoscopic (ICD-10-PCS; 2022-04-29)
PROC: 0TC78ZZ Extirpation of Matter from Left Ureter, Via Natural or Artificial Opening Endoscopic (ICD-10-PCS; principal; 2022-04-29 07:30)
DX: N20.2 Calculus of kidney with calculus of ureter (principal)
CPT/HCPCS: 36415; 51610; 74450; 80048; 82360; 82947; 85025; 85610; 87086; 87088; 88300; J0290; J1100; J1580; J2001; J2405; J2704; J3010; J7030

== ENCOUNTER 2023-09-28 06:05 | Day surgery (SDC) | payer OTHER ==
[2023-09-26 16:03] LABS: Absolute Basophils 0.1 K/uL (0-0.5); Absolute Eosinophils 0.2 K/uL (0-0.5); Absolute Lymphocytes (CBC) 2.9 K/uL (0.7-4.9); Absolute Monocytes 0.9 K/uL (0.1-1.3); Absolute Neutrophil 4.2 K/uL (1.8-8.0); Eosinophils % 2.2 % (0-4.4); Hematocrit 46.5 % (36.0-45.0); Hemoglobin 15.4 g/dL (12.0-15.0); MCH 30.8 pg (27.0-35.0); MCHC 33.1 g/dL (32.0-36.0); MCV 92.9 fL (80-100); MPV 8.3 fL (7.6-11.3); Monocytes % 10.5 % (3.3-12.3); Neutrophils % 51.3 % (41.7-73.7); Nucleated Red Blood Cells % 0.1 % (0-0); Platelets 334 thou/uL (152-406); RBC Red Blood Cell Count 5.01 M/uL (3.86-4.86); Red Cell Distribution Width 13.2 % (12.1-15.2)
[2023-09-26 16:19] LABS: Anion Gap 5.8 mEq/L (5.0-15.0); Potassium 3.8 mEq/L (3.5-5.1)
[2023-09-28] MEDS: NA CHLORIDE 0.9% 1,000 ML ONE (06:35)
[2023-09-28] MEDS: CEFAZOLIN SODIUM 1 GM/VIAL ONE (06:37)
[2023-09-28] MEDS ORDERED: propofoL 200 MG/20 ML VIAL IV ONE (07:20)
[2023-09-28] MEDS ORDERED: FENTANYL CITR 100 MCG/2 ML ONE ×2 (07:20→08:22)
[2023-09-28] MEDS ORDERED: ONDANSETRON 4 MG/2 ML VIAL ONE (07:20)
[2023-09-28] MEDS ORDERED: EPHEDRINE SULF 50 MG/ML VIAL ONE (07:57)
[2023-09-28] MEDS: dexAMETHasone 4 MG/ML VIAL ONE (08:52)
[2023-09-28] MEDS: HYDROCODONE/APAP 7.5/325 MG TAB ONE (10:05)
--- NOTE | 2023-09-28 11:34 | RAD REPORT ---
EXAM DESCRIPTION: RAD - Foot Right 2 View - 09/28/2023 9:01 am CLINICAL HISTORY: RIGHT DORSAL MIDFOOT EXOSTECTOMY COMPARISON: None available. FINDINGS: Three Images were sent to PACS, documenting fluoroscopy use during right dorsal midfoot ex ostectomy procedure. No radiologist was available for the procedure, nor will any image interpretatio n he provided. Please refer to the procedural report for additional details. Fluoroscopy time: 0.2 Minutes. IMPRESSION: Documentation of fluoroscopy utilization as above.
[2023-09-28 13:14] VITALS: BP 157/59; TEMP 98.1; O2SAT 97
== END 2023-09-28 10:38 | disposition home or self-care (01) ==
LOC: OR 06:05
PROVIDERS: ATTEND Podiatrist Foot & Ankle Surgery
PROC: 0QBN0ZZ Excision of Right Metatarsal, Open Approach (ICD-10-PCS; principal; 2023-09-28 07:30)
DX: M25.774 Osteophyte, right foot (principal); I10 Essential (primary) hypertension; E78.5 Hyperlipidemia, unspecified; E11.9 Type 2 diabetes mellitus without complications; K21.9 Gastro-esophageal reflux disease without esophagitis; J45.909 Unspecified asthma, uncomplicated
CPT/HCPCS: 85025; 80048; 36415; 82947 ×2; 73620; 28122; J2704; J1100; J3010 ×2; J2405; J7030; J0690